=== PATIENT | male | born 1945 | race African-American/Black ===

== ENCOUNTER 2016-06-09 09:45 | Emergency (ER) | payer MEDICARE ==
[2016-06-09] MEDS ORDERED: ZOFRAN ODT PO ONE (10:15)
--- NOTE | 2016-06-09 10:18 | Emergency Department Report ---
Entered by EMANUEL TELLEZ, acting as scribe for ODALIS CHIU NP. Chief Complaint: Dizziness Stated Complaint: VOMITING/DIZZINESS/WEAKNESS Time Seen by Provider: 06/09/16 10:13 - HPI History of Present Illness: 70 y/o male presents c/o dizziness that started 30 minutes ago while at hospital visiting family. Sx include vomiting but pt denies pain. No Hx of episode before - ROS Review of Systems: +vomiting +dizziness -pain - Exam Vital Signs: Vital Signs 06/09/16 10:11 Temperature 97.4 F L Pulse Rate 73 Respiratory 18 Rate Blood Pressure 140/88 O2 Sat by Pulse 97 Oximetry Physical Exam: pt is alert and appropriate gcs 15 cranial nerves 2-12 grossly intact MSE screening note: Focused history and physical exam performed. Due to findings the following was ordered: ekg- nsr labs med ED Disposition for MSE Condition: Stable This documentation as recorded by the scribe,EMANUEL TELLEZ,accurately reflects the service I personally performed and the decisions made by [employer].
[2016-06-09] MEDS ORDERED: NACL 0.9% 1000 ML 1,000 ML IV ONE (10:54)
[2016-06-09] MEDS ORDERED: REGLAN IV ONE (10:54)
--- NOTE | 2016-06-09 10:56 | Emergency Department Report ---
ED Dizziness HPI - General Chief Complaint: Dizziness Stated Complaint: VOMITING/DIZZINESS/WEAKNESS Time Seen by Provider: 06/09/16 10:13 Source: patient Mode of arrival: Wheelchair Limitations: Language Barrier - History of Present Illness MD Complaint: dizziness, lightheadedness -: Sudden Timing: sudden onset Description: sense of movement, "room spinning", lightheadedness History of Same: Yes History of Trauma: No Severity: moderate Improves With: remaining still Worsens With: movement, position Associated Symptoms: denies: ataxia, chest pain, confusion, cough, diaphoresis, fever/chills, loss of appetite, malaise, seizure, shortness of breath, syncope, weakness (no abdominal pain) - Related Data Home Medications Medication Instructions Recorded Confirmed Last Taken Aspirin [Aspirin BABY CHEW TAB] 1 tab PO DAILY 06/14/13 06/14/13 06/13/13 Lovastatin [Mevacor] 1 tab PO DAILY 06/14/13 06/14/13 06/13/13 Previous Rx's Medication Instructions Recorded Last Taken Type Ondansetron [Zofran Odt] 4 mg PO TID #15 tab.rapdis 06/09/16 Unknown Rx Allergies Allergy/AdvReac Type Severity Reaction Status Date / Time No Known Allergies Allergy Verified 06/09/16 10:20 ED Review of Systems ROS: Stated complaint: VOMITING/DIZZINESS/WEAKNESS Other details as noted in HPI Constitutional: denies: chills, fever Eyes: denies: eye pain, eye discharge, vision change ENT: denies: ear pain, throat pain Respiratory: denies: cough, shortness of breath, wheezing Cardiovascular: denies: chest pain, palpitations Endocrine: no symptoms reported Gastrointestinal: abdominal pain, nausea, vomiting. denies: diarrhea Genitourinary: denies: urgency, dysuria Musculoskeletal: denies: back pain, joint swelling, arthralgia Skin: denies: rash, lesions Neurological: denies: headache, weakness, paresthesias Psychiatric: denies: anxiety, depression Hematological/Lymphatic: denies: easy bleeding, easy bruising ED Past Medical Hx - Past Medical History Hx Hypertension: Yes (controlled with meds) Hx GERD: Yes Hx Kidney Stones: Yes (OVER 30 YRS AGO) Additional medical history: HIGH CHOLESTEROL - Surgical History Past Surgical History?: No - Social History Smoking Status: Never Smoker Substance Use Type: None - Medications Home Medications: Home Medications Medication Instructions Recorded Confirmed Last Taken Type Aspirin [Aspirin BABY CHEW TAB] 1 tab PO DAILY 06/14/13 06/14/13 06/13/13 History Lovastatin [Mevacor] 1 tab PO DAILY 06/14/13 06/14/13 06/13/13 History Ondansetron [Zofran Odt] 4 mg PO TID #15 tab.rapdis 06/09/16 Unknown Rx ED Physical Exam - General Limitations: Language Barrier General appearance: alert, in no apparent distress - Head Head exam: Present: atraumatic, normocephalic - Eye Eye exam: Present: normal appearance - ENT ENT exam: Present: mucous membranes moist - Neck Neck exam: Present: normal inspection - Respiratory Respiratory exam: Present: normal lung sounds bilaterally. Absent: respiratory distress - Cardiovascular Cardiovascular Exam: Present: regular rate, normal rhythm. Absent: systolic murmur, diastolic murmur, rubs, gallop - GI/Abdominal GI/Abdominal exam: Present: soft, normal bowel sounds. Absent: distended, tenderness, guarding, rebound - Rectal Rectal exam: Present: deferred - Extremities Exam Extremities exam: Present: normal inspection - Back Exam Back exam: Present: normal inspection - Neurological Exam Neurological exam: Present: alert, oriented X3 - Psychiatric Psychiatric exam: Present: normal affect, normal mood - Skin Skin exam: Present: warm, dry, intact, normal color. Absent: rash ED Course Vital Signs 06/09/16 06/09/16 06/09/16 10:11 11:09 11:11 Temperature 97.4 F L Pulse Rate 73 Respiratory 18 Rate Blood Pressure 140/88 134/79 134/79 O2 Sat by Pulse 97 95 96 Oximetry ED Medical Decision Making - Lab Data Result diagrams: 06/09/16 10:40 06/09/16 10:40 - EKG Data When compared to previous EKG there are: no significant change Interpretation: no acute changes - Medical Decision Making Patient been doing well, no symptoms at this time , normal VS, labs negative and imporved with fluids and zofran . EKG negative, no evidence to suspect AAA, no abdmonial pain , no hypotension , equal pulses, also no evidence too suspect and intracranial etiology at this time, Will dc and follow up in 48h Critical care attestation.: If time is entered above; I have spent that time in minutes in the direct care of this critically ill patient, excluding procedure time. ED Disposition Clinical Impression: Vomiting Disposition: DISCHARGED TO HOME OR SELFCARE Is pt being admited?: No Does the pt Need Aspirin: No Condition: Good Instructions: Acute Nausea and Vomiting (ED) Prescriptions: Ondansetron [Zofran Odt] 4 mg PO TID #15 tab.rapdis Referrals: PRIMARY CARE, [Primary Care Provider] - 3-5 Days Time of Disposition: 12:49
[2016-06-09 11:09] LABS: Basophils % (Auto) 0.6 % (0.0-1.8); Eosinophils % (Auto) 1.7 % (0.0-4.3); Hematocrit 40.6 % (35.5-45.6); Hemoglobin 13.5 gm/dl (11.8-15.2); Mean Corpuscular HGB Conc 33 % (32-34); Mean Corpuscular Hemoglobin 30 pg (28-32); Mean Corpuscular Volume 91 fl (84-94); Platelet Count 245 K/mm3 (140-440); Red Blood Count 4.44 M/mm3 (3.65-5.03); Red Cell Distribution Width 13.6 % (13.2-15.2); White Blood Count 6.4 K/mm3 (4.5-11.0)
[2016-06-09 11:17] LABS: Alanine Aminotransferase 15 units/L (7-56); Albumin 3.7 g/dL (3.9-5); Albumin/Globulin Ratio 0.8 %; Alkaline Phosphatase 63 units/L (35-129); Anion Gap 19 mmol/L; Bilirubin,Total 0.5 mg/dL (0.1-1.2); Blood Urea Nitrogen 27 mg/dL (9-20); Calcium 9.1 mg/dL (8.4-10.2); Carbon Dioxide 25 mmol/L (22-30); Chloride 99.2 mmol/L (98-107); Glucose 113 mg/dL (75-100); Potassium 4.4 mmol/L (3.6-5.0); Sodium 139 mmol/L (137-145); Total Protein 8.4 g/dL (6.3-8.2)
[2016-06-09 13:11] VITALS: BP 123/77
== END 2016-06-09 13:11 | disposition home or self-care (01) ==
LOC: ED 09:45
DX: R11.10 Vomiting, unspecified (principal); I10 Essential (primary) hypertension; K21.9 Gastro-esophageal reflux disease without esophagitis; E78.00 Pure hypercholesterolemia, unspecified; Z79.82 Long term (current) use of aspirin
CPT/HCPCS: 36415; 80053; 83690; 84484; 85025; 93005; 93010; 96361; 96374; 99284; J2765; J7030; Q0162

== ENCOUNTER 2016-09-04 11:40 | Emergency (ER) | payer MEDICARE ==
[2016-09-04] MEDS ORDERED: ZOFRAN IV ONE (11:47)
[2016-09-04] MEDS ORDERED: MORPHINE IV ONE (11:47)
[2016-09-04] MEDS ORDERED: PROVENTIL IH ONE (11:51)
--- NOTE | 2016-09-04 12:57 | Emergency Department Report ---
ED Chest Pain HPI - General Stated Complaint: RAMON/N/V/PAIN COUGH Time Seen by Provider: 09/04/16 11:44 - Related Data Home Medications Medication Instructions Recorded Confirmed Last Taken Aspirin [Aspirin BABY CHEW TAB] 1 tab PO DAILY 06/14/13 06/14/13 06/13/13 Lovastatin [Mevacor] 1 tab PO DAILY 06/14/13 06/14/13 06/13/13 Previous Rx's Medication Instructions Recorded Last Taken Type Ondansetron [Zofran Odt] 4 mg PO TID #15 tab.rapdis 06/09/16 Unknown Rx Allergies Allergy/AdvReac Type Severity Reaction Status Date / Time No Known Allergies Allergy Verified 06/09/16 10:20 ED Review of Systems ROS: Stated complaint: RAMON/BACK /N/V/PAIN COUGH Other details as noted in HPI ED Past Medical Hx - Past Medical History Hx Hypertension: Yes (controlled with meds) Hx GERD: Yes Hx Kidney Stones: Yes (OVER 30 YRS AGO) Additional medical history: HIGH CHOLESTEROL - Social History Smoking Status: Never Smoker Substance Use Type: None - Medications Home Medications: Home Medications Medication Instructions Recorded Confirmed Last Taken Type Aspirin [Aspirin BABY CHEW TAB] 1 tab PO DAILY 06/14/13 06/14/13 06/13/13 History Lovastatin [Mevacor] 1 tab PO DAILY 06/14/13 06/14/13 06/13/13 History Ondansetron [Zofran Odt] 4 mg PO TID #15 tab.rapdis 06/09/16 Unknown Rx Critical care attestation.: If time is entered above; I have spent that time in minutes in the direct care of this critically ill patient, excluding procedure time. ED Disposition Condition: Stable
== END 2016-09-04 12:04 | disposition home or self-care (01) ==
LOC: ED 11:40
DX: R06.00 Dyspnea, unspecified (principal); R11.2 Nausea with vomiting, unspecified; R05 Cough
CPT/HCPCS: 99283